=== PATIENT | male | born 1980 ===

== ENCOUNTER 2016-09-14 23:27 | Emergency (ER) | payer OTHER ==
[2016-09-14 23:32] VITALS: BP 113/64; PULSE 92; O2SAT 100
[2016-09-14] MEDS ORDERED: Sodium Chloride 0.9% 1000 ML 1,000 ML ONE (23:43)
[2016-09-14 23:44] LABS: BASOPHIL % 0.5 % (0.0-0.4); Granulocytes % 43.3 % (36.0-66.0); Lymphocytes % 43.7 % (24.0-44.0); Mean Cell Volume 98.3 fl (78-100); Mean Corpuscular Hemoglobin 32.2 pg (26-32); Mean Platelet Volume 9.4 fl (6-9.5); Monocytes % 10.5 % (0.0-12.0); Platelet Count 273 K/mm3 (150-450); Red Blood Count 4.72 M/mm3 (4.1-5.6); Red Cell Distribution Width 13.4 % (11.5-14.0); White Blood Count 9.2 K/mm3 (4.0-10.5)
[2016-09-14] MEDS ORDERED: Sodium Chloride 0.9% 1000 ML 1,000 ML IV SCH (23:45)
--- NOTE | 2016-09-14 23:46 | ERPHSYRPT ---
- History of Present Illness Time Seen by Provider: 09/14/16 23:30 Source: patient Exam Limitations: no limitations Physician History: TONIGHT PT WAS AT HOME IN THE KITCHEN WASHING HIS DOG WHEN HE STARTED TO FEEL FUNNY, SAT DOWN IN A CHAIR AND LOST CONSCIOUSNESS. PT HIT THE RIGHT SIDE OF HIS FOREHEAD ON THE KITCHEN TABLE AND AWOKE WITH SHORTNESS OF AIR AND A RIGHT FRONTAL HEADACHE. PT ALSO STATES FOR THE PAST 10 DAYS HE HAS HAD LEFT SHOULDER PAIN(BURSITIS) AND AN ELECTRIC FEELING IN HIS LEFT HAND. Allergies/Adverse Reactions: No Known Drug Allergies Allergy (Verified 09/14/16 23:34) Home Medications: Quetiapine Fumarate 100 mg [Seroquel 100 MG] 200 mg PO DAILY 04/16/12 [ History] Hx Tetanus, Diphtheria Vaccination/Date Given: Yes Hx Influenza Vaccination/Date Given: No Hx Pneumococcal Vaccination/Date Given: No - Past Medical History Pertinent Past Medical History: Yes Neurological History: No Pertinent History ENT History: No Pertinent History Cardiac History: No Pertinent History Respiratory History: No Pertinent History Endocrine Medical History: No Pertinent History Musculoskeletal History: No Pertinent History GI Medical History: Other History: No Pertinent History Psycho-Social History: Anxiety, Depression, Other Male Reproductive Disorders: No Pertinent History Other Medical History: PTSD. BILIARY COLIC. INSOMNIA - Past Surgical History Past Surgical History: No Neuro Surgical History: No Pertinent History Cardiac: No Pertinent History Respiratory: No Pertinent History Gastrointestinal: No Pertinent History Genitourinary: No Pertinent History Musculoskeletal: No Pertinent History Male Surgical History: No Pertinent History - Social History Smoking Status: Current every day smoker How long have you smoked: 15 Exposure to second hand smoke: Yes Drug Use: marijuana Patient Lives Alone: No - Review of Systems Constitutional: No Fever Ears, Nose, & Throat: No Throat Pain Respiratory: Dyspnea, No Cough Cardiac: No Chest Pain Abdominal/Gastrointestinal: No Vomiting Musculoskeletal: Joint Pain (LEFT SHOULDER PAIN) Neurological: Headache, Sensory Changes (ELECTRIC FEELING IN HIS LEFT HAND), Other (SYNCOPE) Endocrine: No Excessive Sweating All Other Systems: Reviewed and Negative Physical Exam - Nursing Vital Signs Nursing Vital Signs: Initial Vital Signs Temperature 97.6 F Temperature Source Oral Pulse Rate 92 Respiratory Rate 16 Blood Pressure [Right Arm] 113/64 Pain Intensity 0 - Karena Coma Scale Best Eye Response (Industry): (4) open spontaneously Best Verbal Response (Industry): (5) oriented Best Motor Response (Karena): (6) obeys commands Industry Total: 15 - Physical Exam General Appearance: alert Eye Exam: bilateral eye: PERRL, EOMI Ears, Nose, Throat Exam: TMs normal, pharynx normal, moist mucous membranes Neck Exam: normal inspection, non-tender, full range of motion Respiratory: normal breath sounds, lungs clear Cardiovascular: normal heart sounds Gastrointestinal: soft, normal bowel sounds Back Exam: normal range of motion, No vertebral tenderness Extremity Exam: normal inspection, normal range of motion, No pedal edema Peripheral Pulses: dorsalis-pedis (R): 2+, dorsalis-pedis (L): 2+ Mental Status: alert, oriented x 3, 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 Exam: normal hearing, normal speech, PERRL, tongue midline Motor/Sensory: no motor deficit, no sensory deficit, negative Babinski's sign Skin Exam: laceration (1 CM LACERATION OVER RIGHT EYEBROW WITH MILD TENDERNESS) SpO2 Interpretation: normal SpO2: 100 Oxygen Delivery: Room Air - Course Nursing assessment & vital signs reviewed: Yes Ordered Tests: Medication Summary Discontinued Medications Generic Name Dose Route Start Last Admin Trade Name Freq PRN Reason Stop Dose Admin Sodium Chloride 1,000 mls @ 100 mls/hr 09/14/16 23:45 09/14/16 23:43 Sodium Chloride 0.9% 1000 Ml IV 10/14/16 23:44 100 mls/hr .Q10H KIMO Administration Sodium Chloride Confirm 09/14/16 23:43 Sodium Chloride 0.9% 1000 Ml Administered 09/14/16 23:44 Dose 1,000 mls @ ud .ROUTE .[facility] Lab/Rad Data: Laboratory Result Diagrams 09/14/16 23:41 09/14/16 23:41 Laboratory Results 09/14/16 09/14/16 09/14/16 Range/Units 23:41 23:41 23:41 WBC 9.2 (4.0-10.5) K/mm3 RBC 4.72 (4.1-5.6) M/mm3 Hgb 15.2 (12.5-18.0) gm/dl Hct 46.4 (42-50) % MCV 98.3 (78-100) fl MCH 32.2 H (26-32) pg MCHC 32.8 (32-36) g/dl RDW 13.4 (11.5-14.0) % Plt Count 273 (150-450) K/mm3 MPV 9.4 (6-9.5) fl Gran % 43.3 (36.0-66.0) % Lymphocytes % 43.7 (24.0-44.0) % Monocytes % 10.5 (0.0-12.0) % Eosinophils % 2.0 (0.00-5.0) % Basophils % 0.5 (0.0-0.4) % Basophils # 0.05 (0-0.4) Sodium 142 (136-145) mEq/L Potassium 3.4 L (3.5-5.1) mEq/L Chloride 105 (98-107) mEq/L Carbon Dioxide 27.7 (21-32) mEq/L Anion Gap 12.3 (5-15) MEQ/L BUN 11 (9-20) mg/dL Creatinine 1.03 (0.55-1.30) mg/dl Estimated GFR > 60 ML/MIN Glucose 119 H (70-110) MG/DL Calcium 8.6 (8.5-10.1) mg/dL Magnesium 2.0 (1.8-2.4) mg/dL Total Bilirubin 0.3 (0.2-1.0) mg/dL AST 10 L (15-37) U/L ALT 13 (12-78) U/L Alkaline Phosphatase 90 (46-116) U/L Troponin I < 0.017 (0.000-0.056) ng/ml NT-Pro-B Natriuret Pep 16 (0-125) pg/ml Serum Total Protein 7.2 (6.4-8.2) gm/dL Albumin 3.7 (3.4-5.0) g/dL Amylase 57 (25-115) U/L Lipase 164 (73-393) U/L - Departure Time of Disposition: 23:53 Departure Disposition: AMA Clinical Impression: 1 CM LACERATION TO RIGHT EYEBROW, SYNCOPE Condition: Stable Critical Care Time: No Referrals: [facility] [Primary Care Provider] -
[2016-09-15 00:05] LABS: ALBUMIN 3.7 g/dL (3.4-5.0); ALKALINE PHOSPHATASE 90 U/L (46-116); ANION GAP 12.3 MEQ/L (5-15); BILIRUBIN,TOTAL 0.3 mg/dL (0.2-1.0); BLOOD UREA NITROGEN 11 mg/dL (9-20); CHLORIDE 105 mEq/L (98-107); Carbon Dioxide 27.7 mEq/L (21-32); Glucose 119 MG/DL (70-110); LIPASE 164 U/L (73-393); Potassium 3.4 mEq/L (3.5-5.1); SGOT/AST 10 U/L (15-37); SGPT/ALT 13 U/L (12-78); SODIUM 142 mEq/L (136-145); Total Protein 7.2 gm/dL (6.4-8.2)
== END 2016-09-14 23:53 | disposition left against medical advice (07) ==
LOC: ED 23:27
DX: S01.111A Laceration without foreign body of right eyelid and periocular area, initial encounter (principal); W17.89XA Other fall from one level to another, initial encounter; W22.03XA Walked into furniture, initial encounter; R55 Syncope and collapse
CPT/HCPCS: 36415; 80053; 82150; 83690; 83735; 83880; 84484; 85025; 93041; 96360; 99283; 99284

== ENCOUNTER 2019-10-13 11:00 | Emergency (ER) | payer OTHER ==
[2019-10-13 11:10] VITALS: BP 128/80; PULSE 104; O2SAT 96
[2019-10-13] MEDS ORDERED: XYLOCAINE 1%/Epi 1:100000 MDV 20 ML IJ ONE (11:27)
--- NOTE | 2019-10-13 11:27 | ERPHSYRPT ---
- History of Present Illness Time Seen by Provider: 10/13/19 11:19 Source: patient Exam Limitations: no limitations Patient Subjective Stated Complaint: Abscess to left antecub Triage Nursing Assessment: Patient ambulated back to ED and transferred self to bed. Patient A+O x3. Patient's skin pink, warm and dry. Patient complains of abscess to left antecub. Patient states one week ago he was injecting meth into his left antecub and missed. Patient has golf ball sized abscess to left antecub that is hard. Patient denies pain or discomfort. Physician History: About 1 week ago pt shot methamphetamine in his left antecubital area with the area becoming swollen. Pt denies fever, chest pain, chills, abdominal pain, shortness of air. Allergies/Adverse Reactions: No Known Drug Allergies Allergy (Verified 10/13/19 11:09) Hx Tetanus, Diphtheria Vaccination/Date Given: No Hx Influenza Vaccination/Date Given: No Hx Pneumococcal Vaccination/Date Given: No Immunizations Up to Date: Yes Travel Risk - International Travel Have you traveled outside of the country in past 3 weeks: No Have you or anyone close to you been diagnosed with or: No Do your reside in a community with a known COVID-19 case?: No - Coronavirus Screening Has patient experienced Coronavirus symptoms: No - Review of Systems Constitutional: No Fever, No Chills Respiratory: No Dyspnea Cardiac: No Chest Pain Abdominal/Gastrointestinal: No Abdominal Pain Skin: Other (abscess left antecubital area starting one week ago.) Neurological: No Headache All Other Systems: Reviewed and Negative - Past Medical History Pertinent Past Medical History: Yes Neurological History: No Pertinent History ENT History: No Pertinent History Cardiac History: No Pertinent History Respiratory History: No Pertinent History Endocrine Medical History: No Pertinent History Musculoskeletal History: No Pertinent History GI Medical History: Other History: No Pertinent History Psycho-Social History: Anxiety, Depression, Other Male Reproductive Disorders: No Pertinent History Other Medical History: PTSD. BILIARY COLIC. INSOMNIA - Past Surgical History Past Surgical History: No Neuro Surgical History: No Pertinent History Cardiac: No Pertinent History Respiratory: No Pertinent History Gastrointestinal: No Pertinent History Genitourinary: No Pertinent History Musculoskeletal: No Pertinent History Male Surgical History: No Pertinent History - Social History Smoking Status: Current every day smoker How long have you smoked: 15 Exposure to second hand smoke: Yes Drug Use: marijuana, methamphetamines Patient Lives Alone: No - Nursing Vital Signs Nursing Vital Signs: Initial Vital Signs Temperature 97.8 F 10/13/19 11:09 Pulse Rate 104 H 10/13/19 11:09 Respiratory Rate 20 10/13/19 11:09 Blood Pressure 128/80 10/13/19 11:09 O2 Sat by Pulse Oximetry 96 10/13/19 11:09 Pain Scale Pain Intensity 0 - Physical Exam General Appearance: alert Eye Exam: PERRL/EOMI Ears, Nose, Throat Exam: pharynx normal Neck Exam: normal inspection Respiratory Exam: lungs clear Cardiovascular Exam: normal heart sounds Gastrointestinal/Abdomen Exam: soft, normal bowel sounds Back Exam: normal range of motion Extremity Exam: No pedal edema Neurologic Exam: alert, cooperative Skin Exam: other (abscess left antecubital area ~ 3 cm diameter without red streaking.) SpO2 Interpretation: normal SpO2: 96 O2 Delivery: Room Air Procedures - Incision and Drainage Anesthesia: 1% lidocaine w/epi cc's of anesthesia: 1 Blade Size: 11 I & D Procedure: betadine prep, sterile drapes applied, culture obtained Results: moderate amount pus - Course Nursing assessment & vital signs reviewed: Yes Ordered Tests: Active Orders 24 hr Category Date Time Status Wound Care STAT Care 10/13/19 11:27 Active CULTURE,WOUND Stat Lab 10/13/19 11:27 Uncollected Medication Summary Discontinued Medications Generic Name Dose Route Start Last Admin Trade Name Freq PRN Reason Stop Dose Admin Bacitracin Zinc Confirm 10/13/19 11:41 Baciguent Packet Administered 10/13/19 11:42 Dose 1 gm .ROUTE .[facility] ONE Clindamycin HCl 300 mg 10/13/19 11:28 10/13/19 11:41 Cleocin 150 Mg Capsule PO 10/13/19 11:29 300 mg STAT ONE Administration Clindamycin HCl Confirm 10/13/19 11:39 Cleocin 150 Mg Capsule Administered 10/13/19 11:40 Dose 300 mg .ROUTE .[facility] Lidocaine HCl Confirm 10/13/19 11:39 Xylocaine 1% Hcl 20 Ml Mdv Administered 10/13/19 11:40 Dose 5 ml .ROUTE .[facility] Lidocaine/Epinephrine 5 ml 10/13/19 11:27 10/13/19 11:43 Xylocaine 1%/Epi [id number] Mdv 20 Ml IJ 10/13/19 11:28 5 ml STAT ONE Administration - Progress Progress: improved - Departure Departure Disposition: Home Clinical Impression: Abscess of left upper extremity Condition: Stable Critical Care Time: No Referrals: [facility] [Primary Care Provider] - Instructions: Wound Infection Additional Instructions: Follow up with private doctor tomorrow. Neosporin & bandage daily to left arm wound for the next 10 days. keep clean & dry. Prescriptions: Clindamycin HCl 300 mg PO Q6H #40 capsule
[2019-10-13] MEDS ORDERED: CLEOCIN 150 MG CAPSULE PO ONE (11:28)
[2019-10-13] MEDS ORDERED: XYLOCAINE 1% HCL 20 ML MDV ONE (11:39)
[2019-10-13] MEDS ORDERED: CLEOCIN 150 MG CAPSULE ONE (11:39)
[2019-10-13] MEDS ORDERED: BACIGUENT PACKET ONE (11:41)
[2019-10-13] MEDS ORDERED: XYLOCAINE 1%/Epi 1:100000 MDV 20 ML ONE (11:43)
== END 2019-10-13 11:58 | disposition home or self-care (01) ==
LOC: ED 11:00
DX: L03.116 Cellulitis of left lower limb (principal); M79.89 Other specified soft tissue disorders; F41.9 Anxiety disorder, unspecified; F32.9 Major depressive disorder, single episode, unspecified; F43.10 Post-traumatic stress disorder, unspecified; F15.90 Other stimulant use, unspecified, uncomplicated; F12.90 Cannabis use, unspecified, uncomplicated; T43.625A Adverse effect of amphetamines, initial encounter; F15.10 Other stimulant abuse, uncomplicated; Z72.0 Tobacco use
CPT/HCPCS: 87070; 96372; 99284; A9270-GY